=== PATIENT | male | born 1995 | race Caucasian/White ===

== ENCOUNTER 2021-12-04 23:56 | Emergency (ER) | payer OTHER, SELFPAY ==
[2021-12-05 00:14] VITALS: BP 144/88; PULSE 65; RESP 16; TEMP 36.5; O2SAT 98; BMI 25.0
--- NOTE | 2021-12-05 00:19 | XRR_ITS ---
PROCEDURE INFORMATION: Exam: XR Left Wrist Exam date and time: 12/05/2021 12:26 AM Age: 26 years old Clinical indication: Injury or trauma; Fall; Swelling (edema); Wrist; Left; Additional info: Trauma/obvious deformity TECHNIQUE: Imaging protocol: Radiologic exam of the Left wrist. Views: 3 or more views. COMPARISON: No relevant prior studies available. FINDINGS: Bones/joints: Perilunate dislocation injury. Displaced scaphoid waist fracture. Soft tissues: Soft tissue swelling with deformity. XR/XR wrist LT min 3V* [id number] IMPRESSION: 1. Perilunate dislocation injury. 2. Scaphoid waist fracture.
[2021-12-05] MEDS: ondansetron 2 mg/ML SDV 2 mL 4 MG IVP (00:59)
[2021-12-05 01:00] VITALS: RESP 18
[2021-12-05] MEDS: HYDROmorphone 1 mg/mL INJ 1 mL IVP (01:00)
[2021-12-05] MEDS: midazolam 1 mg/mL INJ 2 mL 2 MG IVP (01:45)
--- NOTE | 2021-12-05 01:51 | XRR_ITS ---
PROCEDURE INFORMATION: Exam: XR Left Wrist Exam date and time: 12/05/2021 1:55 AM Age: 26 years old Clinical indication: Abnormal findings; Abnormal imaging study of the limbs; Wrist xray; Additional info: Post reduction TECHNIQUE: Imaging protocol: Radiologic exam of the Left wrist. Views: 1 or 2 views. COMPARISON: CR (UP EX, ) 12/05/2021 12:26 AM FINDINGS: Bones/joints: Improved alignment after closed reduction of left wrist perilunate dislocation. Mild residual lunate dorsal tilt. Acute fracture of the left scaphoid waist. Soft tissues: Left wrist soft tissue swelling. XR/XR wrist LT 2V [id number] IMPRESSION: 1. Improved alignment after closed reduction of left wrist perilunate dislocation. 2. Acute fracture of the left scaphoid waist.
--- NOTE | 2021-12-05 02:32 | PC.NURSE ---
Conscious Sedation record started at 0140. Dr Rogers, Materials Development Engineer and 2 nurses present Vitals 153/78, 73, 19, 100% 0145 Versed 2 mg IVP 0148 Etomidate 15 mg IVP 0149 Reduction began 0150 vitals 169/97, 94, 23, 98% 0155 vitals 160/91, 81, 20, 100% Xray post reduction 0200 vitals 155/93, 59, 17, 99% Orthoglass splint applied 0205 procedure complete. 0210 vitals 152/77, 68, 19, 98% 0220 vitals 161/96, 70, 20, 99% patient back to baseline cognition
[2021-12-05 03:51] VITALS: BP 161/96; PULSE 70; RESP 20; O2SAT 98
--- NOTE | 2021-12-05 17:15 | ED_ITS ---
HPI - Extremity Problem General: Chief complaint: Extremity Injury, Upper Stated complaint: Left Wrist Injury Time Seen by Provider: 12/05/21 00:32 Source: patient History of Present Illness: 26 year old male patient who was riding a bull earlier in the evening when he fell backwards on an outstretched left hand. He sustained an injury to the left wrist with pain and swelling. There is slight deformity. No significant numbness or tingling. No other pains. He did not hit his head, and does not have neck pain. MD Complaint: extremity pain and extremity swelling Onset (ago): hour(s) Pain Consistency: constant Location: left Quality: stabbing and aching Radiation: none Relieving factors: nothing Associated symptoms: Deny chest pain, fever(s) or short of breath Review of Systems Const: Denies: fever(s) Eyes: Denies: change in vision Card: Denies: chest pain Resp: Denies: dyspnea GI: Denies: abdominal pain or vomiting : Denies: flank pain Musc: Denies: neck pain or back pain Neuro: Denies: headache(s) Physical Exam Const: COMMON NORMALS: no acute distress GENERAL APPEARANCE: cooperative HENMT: COMMON NORMALS: normocephalic, atraumatic and Normal external nose present HEAD & SCALP: normocephalic and atraumatic NOSE: Normal external nose present Eye: COMMON NORMALS: Equal, round and reactive pupils present and EOMs intact bilaterally PUPIL: Yes Equal, round and reactive pupils present Neck/C-Spine: COMMON NORMALS: full ROM GENERAL: Yes trachea midline Chest: COMMONS NORMALS: normal inspection of the chest CHEST: Yes Symmetrical chest wall rise Resp: COMMON NORMALS: normal respiratory effort and No use of accessory muscles Cardio: COMMON NORMALS: regular rate and regular rhythm RATE: regular rate RHYTHM: regular rhythm Extremity: NARRATIVE EXTREMITY EXAM: Examination of the left upper extremity reveals tenderness, swelling, and slight deformity of the left wrist. Sensation is intact. Capillary refill is normal. there is no apparent injury or tenderness or deformity proximal to the left distal forearm. Neuro: SONYA COMA SCALE: document GCS findings Sonya coma scale eye opening: Spontaneous [place] coma scale verbal response: Orientated Sonya coma scale motor response: Obey commands Sonya coma scale total score: 15 Procedures Orthopedic Joint Reduction Joint #1: Time Out Performed: Yes Side: left Joint Reduction Location: wrist Analgesia: procedural sedation Technique used: traction/counter-traction and direct manipulation Post-reduction neuro exam: intact Post-reduction vascular: intact Post Reduction X-Ray Obtained: Yes Post Reduction X-Ray Results: reduced Splint Applied: Yes Patient Tolerated Procedure: well and no complications Procedural Sedation Indication: fracture/dislocation reduction ASA Class: I Preparation: bus monitor applied, pulse oximeter, supplemental O2 applied, suction/airway equipment at bedside and IV secured Midazolam: IV Midazolam dose (mg): 2 IV Etomidate dose (mg): 15 Patient Tolerated Procedure: well and no complications Complications: none Course Vital Signs: Vital signs: Vital Signs Temperature 97.7 F 12/05/21 00:14 Pulse Rate 70 12/05/21 03:51 Respiratory Rate 20 H 12/05/21 03:51 Blood Pressure 161/96 12/05/21 03:51 Pulse Oximetry 98 12/05/21 03:51 MDM - Extremity (Nontraumatic) Medical Decision Making Wrist is successfully reduced. It's in anatomic position. There is a scaphoid waist fracture. The patient is placed in a thumb spica splint, long forearm. He was instructed to stay in the splint until seen by orthopedics. And he is from [facility], and will likely follow up with orthopedics in [place]. He was instructed to call on Tuesday and get an appointment. Lab Data Radiology Impressions Wrist X-Ray 12/05/21 01:51 IMPRESSION: 1. Improved alignment after closed reduction of left wrist perilunate dislocation. 2. Acute fracture of the left scaphoid waist. Discharge Plan Discharge Patient Disposition: Home Clinical Impression: Closed perilunate dislocation of left wrist Fracture of scaphoid Qualifiers: Encounter type: initial encounter Scaphoid bone location: unspecified portion of scaphoid Fracture type: closed Fracture alignment: nondisplaced Laterality: left Qualified Code(s): S62.002A - Unspecified fracture of navicular [scaphoid] bone of left wrist, initial encounter for closed fracture Condition: Stable Prescriptions: New hydrocodone-acetaminophen 5-325 mg tablet 1 tab PO Q8H PRN (Reason: pain) Qty: 7 0RF Discharge Orders: Discharge ED (Routine); Ordered 12/05/21 Ordered By: Hebert Rogers Patient Instructions: Scaphoid Fracture (ED), Opioid Safety Activity Restrictions/Additional Instructions: Call the orthopedic clinic in your local area on Tuesday. Tell them you were seen in the ER with a scaphoid fracture and wrist dislocation that was reduced. Make a follow-up appointment with them. Stay in the splint you were placed in until seen by them. Return for any problems. Coding Level of Care Code ED Edm Operator for Joce Lerma Exam Comprehensive
== END 2021-12-05 02:50 | disposition home or self-care (01) ==
PROVIDERS: Emergency Provider Emergency Medicine
DX: S62.002A Unspecified fracture of navicular [scaphoid] bone of left wrist, initial encounter for closed fracture (principal); S63.095A Other dislocation of left wrist and hand, initial encounter; V80.018A Animal-rider injured by fall from or being thrown from other animal in noncollision accident, initial encounter
CPT/HCPCS: 25690; 73100; 73110; 96374; 96375; 99284; J1170; J2250; J2405; J3490